=== PATIENT | female | born 1950 | race Two or more races ===

== ENCOUNTER 2021-07-04 06:54 | Inpatient (IN) | payer OTHER ==
[~2021-07-04] VITALS: Ht 154.9 cm; Wt 87.8 kg
[2021-07-04] MEDS ORDERED: HEPARIN SODIUM (PORCINE) 5000 UNITS/ML 1ML VIAL IV ONE (07:15)
[2021-07-04] MEDS ORDERED: SODIUM CHLORIDE 0.9% 1,000 ML IV ONE (07:15)
[2021-07-04] MEDS ORDERED: ASPirin 81 mg TAB PO ONE (07:15)
[2021-07-04 07:25] LABS: Basophils # (auto) 0.1 10 ^3/uL (0-0.2); Basophils % (auto) 1.1 % (0.0-2.0); Eosinophils # (auto) 0.4 10 ^3/uL (0-0.8); Eosinophils % (auto) 3.6 % (0.0-7.0); Hematocrit 32.9 % (36.0-46.0); Hemoglobin 10.3 g/dL (12.2-16.2); Lymphocytes % (auto) 35.1 % (10.0-50.0); Mean Corpuscular Hemoglobin 22.7 pg (28.0-32.0); Mean Corpuscular Hgb Conc. 31.2 g/dL (32.0-36.0); Mean Corpuscular Volume 72.7 fL (80.0-100.0); Monocytes # (auto) 0.8 10 ^3/uL (0-1.3); Monocytes % (auto) 6.8 % (0.0-12.0); Neutrophils % (auto) 53.4 % (37.0-80.0); Nucleated Red Blood Cells % 0.1 %; Red Blood Cells 4.52 10^6/uL (4.0-5.20); Red Cell Distribution Width 16.1 % (11.8-14.3); White Blood Cell 11.3 10^3/uL (4.4-10.8)
[2021-07-04 07:44] LABS: INR 1.02 (0.9-1.15); Partial Thromboplastin Time 26.5 sec (23.6-33.0)
[2021-07-04] MEDS ORDERED: SOD CHL 0.45% 1,000 ML IV ONE (07:45)
[2021-07-04 07:46] LABS: Anion Gap 13 (5-15); Blood Urea Nitrogen 23 mg/dL (7-18); Calcium 8.2 mg/dL (8.5-10.1); Carbon Dioxide 18 mmol/L (21-32); Chloride 106 mmol/L (98-107); Glucose 397 mg/dL (74-106); Potassium 3.4 mmol/L (3.5-5.1); Sodium 137 mmol/L (136-145)
[2021-07-04 07:48] LABS: Alanine Aminotransferase 16 U/L (13-56); Aspartate Aminotransferase 14 U/L (15-37); BUN/Creatinine Ratio 11.4; GFR African American 31 mL/min; GFR Non-African American 26 mL/min
[2021-07-04 07:53] LABS: Alkaline Phosphatase 103 U/L (45-117); Bilirubin, Total 0.3 mg/dL (0.2-1.0); Total Protein 7.1 g/dL (6.4-8.2)
[2021-07-04] MEDS ORDERED: ANGIOMAX 250 MG VIAL IV ONE (09:22)
[2021-07-04] MEDS ORDERED: fentaNYL CITRATE 100 MCG/2 ML VL ONE (09:22)
[2021-07-04] MEDS ORDERED: diphenhdrAMINE HCL 50 MG/1 ML VL ONE (09:22)
[2021-07-04] MEDS ORDERED: methylPREDNISolone SOD SUCC 125 MG/2 ML VL ONE (09:22)
[2021-07-04] MEDS ORDERED: SODIUM CHL 0.9% 50 ML ONE (09:23)
[2021-07-04] MEDS ORDERED: MIDAZOLAM HCL 2MG/2ML 2ml VIAL (1mg/ml) ONE (09:23)
[2021-07-04] MEDS ORDERED: FAMOTIDINE (10MG/ML) 2ML VL IV ONE ×2 (09:25→09:26)
[2021-07-04] MEDS ORDERED: IODIXANOL 320MG/ML 100ML BTL IV ONE (09:29)
[2021-07-04] MEDS ORDERED: LIDOCAINE 2%HCL (LOCAL ANESTH.) INJ 20ML MDV ONE (09:29)
[2021-07-04] MEDS ORDERED: ATROPINE SULF 1 MG/10ml SYR ONE (09:33)
[2021-07-04] MEDS ORDERED: EPTIFIBATIDE INJ (2MG/ML) 10ML VIAL IV ONE (10:03)
[2021-07-04] MEDS ORDERED: TICAGRELOR 90 MG TAB ONE (10:06)
[2021-07-04] MEDS ORDERED: SODIUM BICARBONATE 8.4 % INJ 50ML VIAL IV ONE (10:11)
[2021-07-04] MEDS ORDERED: NOREPINEPHRINE 8 MG/250ML KIT 0 ML IV ONE (10:16)
[2021-07-04] MEDS ORDERED: MORPHINE SULFATE INJECTION 2 MG/ML SYRG IV PRN (10:34)
[2021-07-04] MEDS ORDERED: MORPHINE SULFATE 4 MG/ML SYR/VIAL IV PRN (10:34)
[2021-07-04] MEDS ORDERED: NITROGLYCERIN 0.4 MG SL TAB SL PRN ×2 (10:34)
[2021-07-04] MEDS ORDERED: ACETAMINOPHEN 500 MG TAB PO PRN (10:34)
[2021-07-04] MEDS ORDERED: ONDANSETRON HCL 4 MG/2 ML VIAL ONE (10:59)
[2021-07-04] MEDS ORDERED: DEXTROSE (50%) 50ML SYRG IV PRN (11:00)
[2021-07-04] MEDS: ONDANSETRON HCL 4 MG/2 ML VIAL IV PRN (11:00)
[2021-07-04] MEDS ORDERED: ACCU-CHEK COMFORT CURVE STRIP VI SCH (11:30)
[2021-07-04] MEDS: SODIUM BICARBONATE 50ML VIAL 50 ML in SOD CHL 0.45% 1,000 ML IV SCH (11:40)
[2021-07-04] MEDS: ACCU-CHEK COMFORT CURVE STRIP VI SCH ×3 (11:46→18:49)
[2021-07-04] MEDS: InsuLIN REG 1unit/0.01ml Soln (100units/ml) SC SCH ×2 (11:49→19:02)
[2021-07-04] MEDS ORDERED: METOCLOPRAMIDE HCL 5MG/ml INJ 2ml VIAL IV ONE (12:10)
[2021-07-04] MEDS ORDERED: METOCLOPRAMIDE HCL 5MG/ml INJ 2ml VIAL ONE (12:31)
[2021-07-04] MEDS: HYDROmorphone HCL 2 MG/ML VL IV PRN (13:08)
[2021-07-04 17:00] VITALS: BP 151/86
[2021-07-04] MEDS: TICAGRELOR 90 MG TAB PO SCH (21:51)
[2021-07-04 22:00] VITALS: BP 134/73
[2021-07-05] MEDS: ACCU-CHEK COMFORT CURVE STRIP VI SCH ×4 (00:14→18:02)
[2021-07-05] MEDS: InsuLIN REG 1unit/0.01ml Soln (100units/ml) SC SCH ×4 (00:17→18:03)
[2021-07-05] MEDS: SODIUM BICARBONATE 50ML VIAL 50 ML in SOD CHL 0.45% 1,000 ML IV SCH ×3 (00:25→13:45)
[2021-07-05 05:00] VITALS: BP 151/68
[2021-07-05] MEDS: hydrALAZINE HCL 20 MG/ML VL IV PRN ×2 (06:10→23:09)
[2021-07-05 07:09] LABS: Potassium 3.6 mmol/L (3.5-5.1)
[2021-07-05 07:13] LABS: BUN/Creatinine Ratio 12.5; Calcium 8.1 mg/dL (8.5-10.1)
[2021-07-05 09:00] VITALS: BP 120/56
[2021-07-05] MEDS: ASPirin 81 mg TAB PO SCH (09:38)
[2021-07-05] MEDS: TICAGRELOR 90 MG TAB PO SCH ×2 (09:39→22:22)
[2021-07-05] MEDS: ATORVASTATIN 20 MG TAB PO SCH (09:39)
[2021-07-05 13:00] VITALS: BP 128/70
[2021-07-05] MEDS ORDERED: POTASSIUM CHL 20 Meq TABLET PO ONE (14:15)
[2021-07-05] MEDS ORDERED: POTASSIUM EFFERVESENT TAB 25 MEQ GT ONE (14:45)
[2021-07-05] MEDS ORDERED: POTASSIUM EFFERVESENT TAB 25 MEQ PO ONE (15:00)
[2021-07-05] MEDS: ONDANSETRON HCL 4 MG/2 ML VIAL IV PRN ×2 (16:51→22:22)
[2021-07-05 17:01] VITALS: BP 128/126
[2021-07-05] MEDS: HYDROmorphone HCL 2 MG/ML VL IV PRN ×2 (18:28→22:22)
[2021-07-05 22:00] VITALS: BP 178/95
[2021-07-06] MEDS: ACCU-CHEK COMFORT CURVE STRIP VI SCH ×5 (00:04→23:36)
[2021-07-06] MEDS: InsuLIN REG 1unit/0.01ml Soln (100units/ml) SC SCH ×5 (00:17→23:41)
[2021-07-06] MEDS: LABETALOL HCL 5 MG/ML 4ML SYRINGE IV PRN ×2 (02:21→06:29)
[2021-07-06 05:00] VITALS: BP 186/81
[2021-07-06] MEDS: SODIUM BICARBONATE 50ML VIAL 50 ML in SOD CHL 0.45% 1,000 ML IV SCH (06:42)
[2021-07-06 08:02] LABS: Potassium 3.3 mmol/L (3.5-5.1)
[2021-07-06 08:30] LABS: BUN/Creatinine Ratio 14.7; Calcium 8.3 mg/dL (8.5-10.1)
[2021-07-06] MEDS: ONDANSETRON HCL 4 MG/2 ML VIAL IV PRN (08:45)
[2021-07-06 09:00] VITALS: BP 149/76
[2021-07-06] MEDS: TICAGRELOR 90 MG TAB PO SCH ×2 (09:53→21:21)
[2021-07-06] MEDS: ATORVASTATIN 20 MG TAB PO SCH (09:53)
[2021-07-06] MEDS: ASPirin 81 mg TAB PO SCH (09:53)
[2021-07-06] MEDS: LOSARTAN POTASSIUM 50 MG TAB PO SCH ×2 (09:53→21:18)
[2021-07-06 12:34] VITALS: BP 93/45
[2021-07-06 17:18] VITALS: BP 92/54
[2021-07-06 22:00] VITALS: BP 98/63
[2021-07-06] MEDS: HYDROcodone-ACET 5/325MG TAB PO PRN (22:57)
[2021-07-07] MEDS: SODIUM BICARBONATE 50ML VIAL 50 ML in SOD CHL 0.45% 1,000 ML IV SCH ×2 (01:25→14:09)
[2021-07-07 05:00] VITALS: BP 92/53
[2021-07-07] MEDS: InsuLIN REG 1unit/0.01ml Soln (100units/ml) SC SCH ×3 (06:08→18:05)
[2021-07-07] MEDS: ACCU-CHEK COMFORT CURVE STRIP VI SCH ×3 (06:08→18:04)
[2021-07-07 07:01] LABS: BUN/Creatinine Ratio 12.7; Calcium 7.4 mg/dL (8.5-10.1)
[2021-07-07] MEDS ORDERED: LIDOCAINE 2%HCL (LOCAL ANESTH.) INJ 20ML MDV ONE (07:55)
[2021-07-07 08:00] VITALS: BP 104/62
[2021-07-07] MEDS ORDERED: diphenhdrAMINE HCL 50 MG/1 ML VL ONE (08:31)
[2021-07-07] MEDS ORDERED: methylPREDNISolone SOD SUCC 125 MG/2 ML VL ONE (08:31)
[2021-07-07] MEDS ORDERED: fentaNYL CITRATE 100 MCG/2 ML VL ONE (08:31)
[2021-07-07] MEDS ORDERED: ANGIOMAX 250 MG VIAL IV ONE ×2 (08:31→09:36)
[2021-07-07] MEDS ORDERED: SODIUM CHL 0.9% 50 ML ONE ×3 (08:32→09:36)
[2021-07-07] MEDS ORDERED: MIDAZOLAM HCL 2MG/2ML 2ml VIAL (1mg/ml) ONE (08:32)
[2021-07-07] MEDS ORDERED: FAMOTIDINE (10MG/ML) 2ML VL IV ONE (08:32)
[2021-07-07 08:40] LABS: Potassium 2.9 mmol/L (3.5-5.1)
[2021-07-07] MEDS ORDERED: VERAPAMIL 2.5MG/ML INJ 2ML VIAL IV ONE (08:42)
[2021-07-07] MEDS ORDERED: HEPARIN SODIUM (PORCINE) 5000 UNITS/ML 1ML VIAL ONE (08:42)
[2021-07-07] MEDS ORDERED: IODIXANOL 320MG/ML 100ML BTL IV ONE ×2 (09:53→10:17)
[2021-07-07] MEDS ORDERED: SODIUM BICARBONATE 8.4 % INJ 50ML VIAL IV ONE (09:59)
[2021-07-07] MEDS: LOSARTAN POTASSIUM 50 MG TAB PO SCH ×2 (10:00→22:00)
[2021-07-07] MEDS: TICAGRELOR 90 MG TAB PO SCH ×2 (10:00→22:15)
[2021-07-07] MEDS: ASPirin 81 mg TAB PO SCH (10:00)
[2021-07-07] MEDS: ATORVASTATIN 20 MG TAB PO SCH (10:00)
[2021-07-07] MEDS ORDERED: niCARdipine 25 MG/10 ML VIAL IV ONE (10:20)
[2021-07-07] MEDS ORDERED: TICAGRELOR 90 MG TAB ONE (10:42)
[2021-07-07] MEDS ORDERED: ONDANSETRON HCL 4 MG/2 ML VIAL ONE (10:51)
[2021-07-07] MEDS ORDERED: SODIUM CHLORIDE 0.9% 1,000 ML IV ONE (11:30)
[2021-07-07] MEDS ORDERED: SODIUM BICARBONATE 50ML VIAL 50 ML in SOD CHL 0.45% 1,000 ML IV SCH (11:45)
[2021-07-07] MEDS: HYDROmorphone HCL 2 MG/ML VL IV PRN ×2 (12:34→15:35)
[2021-07-07] MEDS ORDERED: POTASSIUM CHL 20 Meq TABLET PO ONE ×3 (13:30→15:30)
[2021-07-07] MEDS: LABETALOL HCL 5 MG/ML 4ML SYRINGE IV PRN (15:20)
[2021-07-07 16:00] VITALS: BP 149/91
[2021-07-07] MEDS ORDERED: POTASSIUM CHL 20MEQ/100ML 100 ML IV ONE (16:15)
[2021-07-07] MEDS: ONDANSETRON HCL 4 MG/2 ML VIAL IV PRN (19:09)
[2021-07-07 20:10] LABS: BUN/Creatinine Ratio 13.9; Calcium 7.4 mg/dL (8.5-10.1); Potassium 3.7 mmol/L (3.5-5.1)
[2021-07-07 22:00] VITALS: BP 96/56
[2021-07-07] MEDS: HYDROcodone-ACET 5/325MG TAB PO PRN (22:16)
[2021-07-08] MEDS: SODIUM BICARBONATE 50ML VIAL 50 ML in SOD CHL 0.45% 1,000 ML IV SCH ×2 (00:06→10:30)
[2021-07-08] MEDS: InsuLIN REG 1unit/0.01ml Soln (100units/ml) SC SCH ×5 (00:11→23:37)
[2021-07-08] MEDS: ACCU-CHEK COMFORT CURVE STRIP VI SCH ×5 (00:12→23:36)
[2021-07-08] MEDS: ONDANSETRON HCL 4 MG/2 ML VIAL IV PRN (00:12)
[2021-07-08 05:00] VITALS: BP 110/71
[2021-07-08 06:55] LABS: Potassium 4.2 mmol/L (3.5-5.1)
[2021-07-08 07:08] LABS: BUN/Creatinine Ratio 15.7; Calcium 7.2 mg/dL (8.5-10.1)
[2021-07-08 08:52] VITALS: BP 102/57
[2021-07-08] MEDS: LOSARTAN POTASSIUM 50 MG TAB PO SCH ×2 (10:00→21:33)
[2021-07-08] MEDS: ASPirin 81 mg TAB PO SCH (11:20)
[2021-07-08] MEDS: TICAGRELOR 90 MG TAB PO SCH ×2 (11:20→21:33)
[2021-07-08] MEDS: ATORVASTATIN 20 MG TAB PO SCH (11:22)
[2021-07-08 12:52] VITALS: BP 95/42
[2021-07-08 17:00] VITALS: BP 111/47
[2021-07-08] MEDS: HYDROmorphone HCL 2 MG/ML VL IV PRN (17:31)
[2021-07-08 21:52] VITALS: BP 114/73
[2021-07-09 05:30] VITALS: BP 118/72
[2021-07-09] MEDS: InsuLIN REG 1unit/0.01ml Soln (100units/ml) SC SCH ×3 (06:00→17:58)
[2021-07-09] MEDS: ACCU-CHEK COMFORT CURVE STRIP VI SCH ×3 (06:09→17:57)
[2021-07-09 07:17] LABS: BUN/Creatinine Ratio 14.3; Calcium 7.3 mg/dL (8.5-10.1); Potassium 3.7 mmol/L (3.5-5.1)
[2021-07-09 09:00] VITALS: BP 110/64
[2021-07-09] MEDS: ATORVASTATIN 20 MG TAB PO SCH (10:34)
[2021-07-09] MEDS: TICAGRELOR 90 MG TAB PO SCH ×2 (10:34→22:01)
[2021-07-09] MEDS: ASPirin 81 mg TAB PO SCH (10:34)
[2021-07-09] MEDS: ONDANSETRON HCL 4 MG/2 ML VIAL IV PRN (10:58)
[2021-07-09] MEDS: HYDROmorphone HCL 2 MG/ML VL IV PRN (12:23)
[2021-07-09] MEDS: PROMETHAZINE HCL 25 MG/ML 1ML IV PRN (12:23)
[2021-07-09 13:00] VITALS: BP 114/85
[2021-07-09 14:40] LABS: Potassium 3.3 mmol/L (3.5-5.1)
[2021-07-09 14:55] LABS: Albumin 2.9 g/dL (3.4-5.0); BUN/Creatinine Ratio 14.5; Bilirubin, Total 0.9 mg/dL (0.2-1.0); Calcium 7.4 mg/dL (8.5-10.1); Total Protein 6.4 g/dL (6.4-8.2)
[2021-07-09 16:52] VITALS: BP 161/92
[2021-07-09] MEDS: hydrALAZINE HCL 20 MG/ML VL IV PRN (17:06)
[2021-07-09] MEDS: HYDROcodone-ACET 5/325MG TAB PO PRN (21:42)
[2021-07-09 22:00] VITALS: BP 119/62
[2021-07-10] MEDS: HYDROcodone-ACET 5/325MG TAB PO PRN ×4 (03:24→20:41)
[2021-07-10 05:00] VITALS: BP 125/63
[2021-07-10] MEDS: ACCU-CHEK COMFORT CURVE STRIP VI SCH ×5 (06:00→23:48)
[2021-07-10] MEDS: InsuLIN REG 1unit/0.01ml Soln (100units/ml) SC SCH ×5 (06:00→23:48)
[2021-07-10 06:16] LABS: Calcium 7.2 mg/dL (8.5-10.1); Potassium 3.3 mmol/L (3.5-5.1)
[2021-07-10 06:23] LABS: Albumin 2.7 g/dL (3.4-5.0); BUN/Creatinine Ratio 14.1; Bilirubin, Total 0.7 mg/dL (0.2-1.0); Total Protein 6.1 g/dL (6.4-8.2)
[2021-07-10] MEDS: PROMETHAZINE HCL 25 MG/ML 1ML IV PRN ×4 (08:21→23:30)
[2021-07-10 09:07] VITALS: BP 131/74
[2021-07-10] MEDS: ASPirin 81 mg TAB PO SCH (09:36)
[2021-07-10] MEDS: TICAGRELOR 90 MG TAB PO SCH ×2 (09:36→21:53)
[2021-07-10] MEDS ORDERED: POTASSIUM CHL 20 Meq TABLET PO ONE ×2 (12:45→15:15)
[2021-07-10 13:00] VITALS: BP 124/51
[2021-07-10] MEDS: SODIUM BICARB 50ML SYR 100 ML in SOD CHL 0.45% 1,000 ML IV SCH (14:28)
[2021-07-10 16:47] VITALS: BP 123/66
[2021-07-10] MEDS: ATORVASTATIN 20 MG TAB PO SCH (21:53)
[2021-07-10 22:00] VITALS: BP 118/75
[2021-07-11] MEDS ORDERED: SODIUM BICARBONATE 8.4 % INJ 50ML VIAL IV ONE (00:24)
[2021-07-11] MEDS: SODIUM BICARB 50ML SYR 100 ML in SOD CHL 0.45% 1,000 ML IV SCH (00:28)
[2021-07-11] MEDS: PROMETHAZINE HCL 25 MG/ML 1ML IV PRN ×2 (04:14→16:53)
[2021-07-11 05:00] VITALS: BP 138/82
[2021-07-11] MEDS: InsuLIN REG 1unit/0.01ml Soln (100units/ml) SC SCH ×4 (06:00→23:40)
[2021-07-11] MEDS: ACCU-CHEK COMFORT CURVE STRIP VI SCH ×4 (06:10→23:39)
[2021-07-11] MEDS: HYDROmorphone HCL 2 MG/ML VL IV PRN ×2 (06:51→22:02)
[2021-07-11 08:00] VITALS: BP 110/56
[2021-07-11 08:01] LABS: Albumin 2.3 g/dL (3.4-5.0); Calcium 6.9 mg/dL (8.5-10.1); Magnesium 1.7 mg/dL (1.6-2.6)
[2021-07-11 08:03] LABS: BUN/Creatinine Ratio 15.6
[2021-07-11 08:13] LABS: Bilirubin, Total 0.7 mg/dL (0.2-1.0); Total Protein 5.4 g/dL (6.4-8.2)
[2021-07-11 08:40] LABS: Potassium 2.9 mmol/L (3.5-5.1)
[2021-07-11] MEDS: POTASSIUM CHLORIDE 40 MEQ in SOD CHL 0.45% 1,000 ML IV SCH ×2 (09:49→22:40)
[2021-07-11] MEDS: TICAGRELOR 90 MG TAB PO SCH ×2 (10:58→22:02)
[2021-07-11] MEDS: ASPirin 81 mg TAB PO SCH (10:58)
[2021-07-11 12:00] VITALS: BP 133/73
[2021-07-11 16:00] VITALS: BP 138/84
[2021-07-11] MEDS: HYDROcodone-ACET 5/325MG TAB PO PRN (16:53)
[2021-07-11] MEDS: ATORVASTATIN 20 MG TAB PO SCH (22:00)
[2021-07-11 23:59] VITALS: BP 159/76
[2021-07-12 05:36] VITALS: BP 116/70
[2021-07-12] MEDS: InsuLIN REG 1unit/0.01ml Soln (100units/ml) SC SCH ×2 (05:46→12:00)
[2021-07-12] MEDS: ACCU-CHEK COMFORT CURVE STRIP VI SCH ×2 (05:46→12:00)
[2021-07-12 06:49] LABS: Potassium 3.4 mmol/L (3.5-5.1)
[2021-07-12 06:57] LABS: Calcium 6.7 mg/dL (8.5-10.1)
[2021-07-12 08:45] VITALS: BP 131/74
[2021-07-12] MEDS: TICAGRELOR 90 MG TAB PO SCH (10:03)
[2021-07-12] MEDS: ASPirin 81 mg TAB PO SCH (10:03)
[2021-07-12] MEDS: POTASSIUM CHLORIDE 40 MEQ in SOD CHL 0.45% 1,000 ML IV SCH (10:03)
[2021-07-12 13:00] VITALS: BP 113/70
== END 2021-07-12 15:00 | disposition home or self-care (01) | DRG 246 ==
LOC: ER 06:54 → EDSEX 06:54 → EDBD 06:54 → CATH 1 07:29 → CENTRAL 11:30 → TELE-CENTR 14:10
PROVIDERS: ADMIT Specialist; ATTEND Specialist
PROC: 027034Z Dilation of Coronary Artery, One Artery with Drug-eluting Intraluminal Device, Percutaneous Approach (ICD-10-PCS; principal; 2021-07-04)
PROC: 02C03ZZ Extirpation of Matter from Coronary Artery, One Artery, Percutaneous Approach (ICD-10-PCS; 2021-07-04)
PROC: B211YZZ Fluoroscopy of Multiple Coronary Arteries using Other Contrast (ICD-10-PCS; 2021-07-04)
PROC: B41FYZZ Fluoroscopy of Right Lower Extremity Arteries using Other Contrast (ICD-10-PCS; 2021-07-04)
PROC: 027236Z Dilation of Coronary Artery, Three Arteries with Three Drug-eluting Intraluminal Devices, Percutaneous Approach (ICD-10-PCS; 2021-07-07)
PROC: B210YZZ Fluoroscopy of Single Coronary Artery using Other Contrast (ICD-10-PCS; 2021-07-07)
PROC: B41GYZZ Fluoroscopy of Left Lower Extremity Arteries using Other Contrast (ICD-10-PCS; 2021-07-07)
PROC: B240ZZ3 Ultrasonography of Single Coronary Artery, Intravascular (ICD-10-PCS; 2021-07-07)
DX: I21.4 Non-ST elevation (NSTEMI) myocardial infarction (principal); E44.0 Moderate protein-calorie malnutrition; N17.9 Acute kidney failure, unspecified; D50.9 Iron deficiency anemia, unspecified; E87.6 Hypokalemia; E03.9 Hypothyroidism, unspecified; F41.9 Anxiety disorder, unspecified; E11.22 Type 2 diabetes mellitus with diabetic chronic kidney disease; E66.9 Obesity, unspecified; I25.10 Atherosclerotic heart disease of native coronary artery without angina pectoris; Z20.822 Contact with and (suspected) exposure to COVID-19; R00.1 Bradycardia, unspecified; I12.9 Hypertensive chronic kidney disease with stage 1 through stage 4 chronic kidney disease, or unspecified chronic kidney disease; N18.9 Chronic kidney disease, unspecified; Z90.49 Acquired absence of other specified parts of digestive tract; Z68.30 Body mass index [BMI] 30.0-30.9, adult
CPT/HCPCS: 36415; 71045; 75710; 76705; 80048; 80053; 82962; 83735; 83880; 84156; 84443; 84484; 85025; 85379; 85610; 85730; 86850; 86900; 86901; 87426; 92928; 92929; 92933; 92978; 93005; 93306; 93454; 96361; 96374; 99152; 99153; C1874; C1887; G0378; J1815; J2250; J2405; J3480; J3490; Q9967